=== PATIENT | male | born 1960 | race Caucasian/White ===

== ENCOUNTER → 2020-02-05 | Outpatient (CLI) | payer BC ==
[~2020-02-05] MED LIST: ALLEGRA30 MG PO; ASPIRIN BUFFER325 MG PO; EFFIENT10 MG PO; LIPITOR80 MG PO; SIMVASTATIN; SINGULAIR 10 MG10 M1 PO
== END ==
LOC: SJCVCIMAG 10:56
PROVIDERS: ATTEND Internal Medicine Cardiovascular Disease
DX: I25.10 Atherosclerotic heart disease of native coronary artery without angina pectoris (principal); I25.2 Old myocardial infarction; I10 Essential (primary) hypertension; E78.5 Hyperlipidemia, unspecified; Z95.5 Presence of coronary angioplasty implant and graft

== ENCOUNTER → 2021-06-22 | Outpatient (CLI) | payer BC | LOC: SJCVCIMAG 08:15 | PROVIDERS: ATTEND Internal Medicine Cardiovascular Disease | DX: I25.10 Atherosclerotic heart disease of native coronary artery without angina pectoris (principal) ==